=== PATIENT | female | born 1975 | race Caucasian/White ===

== ENCOUNTER 2016-12-18 13:55 | Inpatient (IN) ==
--- NOTE | 2016-12-18 14:22 | Emergency Department Note ---
Disposition Clinical Impression: Pulmonary embolus Qualifiers: Pulmonary embolism type: other Chronicity: acute Acute cor pulmonale presence: without acute cor pulmonale Qualified Code(s): I26.99 - Other pulmonary embolism without acute cor pulmonale Disposition: Admitted As Inpatient Condition: Fair Referrals: Boni Carlson MD [Primary Care Provider] - Forms: ED Satisfaction Letter Time of Disposition: 16:05 SOB HPI - General Chief Complaint: ED Shortness of Breath/Dyspnea Stated Complaint: SOB Time Seen by Provider: 12/18/16 14:07 Source: patient Limitations: no limitations Nursing Notes Reviewed: Yes Vital Signs Reviewed: Yes - History of Present Illness Patient emergency department complaining of shortness of breath. Patient states she cannot walk down the hallway without losing her breath. Get short of breath to tie her shoes. Denies fever. States she feels like she is coming down with bronchitis but she is not coughing. She has a history of a superficial blood clot in her leg. She is sedentary secondary to a back problem for which she ambulate with a walker. - Related Data Allergies Allergy/AdvReac Type Severity Reaction Status Date / Time No Known Allergies Allergy Verified 07/25/15 13:35 All systems ED: reviewed and negative except as stated. Constitutional: Denies: fever Cardiovascular: Denies: chest pain Respiratory: Reports: dyspnea. Denies: cough, wheezes, hemoptysis Gastrointestinal: Denies: vomiting, diarrhea Past Medical History - Past Medical History Attestation: Yes The following information was validated with the patient. Source: patient Medical history: Reports: diabetes, hypertension Surgical history: Reports: cholecystectomy Psychiatric history: Reports: anxiety SPECIAL SERVICES DIRECTOR history: Reports: no SPECIAL SERVICES DIRECTOR history - Social History Smoking Status: Former smoker Smokeless Tobacco Status: No Alcohol use: Reports: none, rarely, occasionally Drug use: Reports: none Physical Exam - General Limitations: no limitations General appearance: alert, in no apparent distress - Head Head exam: atraumatic, normocephalic - Eye Eye exam: Present: normal appearance, PERRL, EOMI - ENT ENT exam: normal exam - Neck Neck exam: Present: normal inspection - Chest Chest inspection: Present: normal inspection - Respiratory Respiratory exam: Present: normal lung sounds bilaterally. Absent: respiratory distress, wheezes, stridor, accessory muscle use - Cardiovascular Cardiovascular exam: Present: normal rhythm, tachycardia - Abdominal Exam Abdominal exam: Present: soft, Non-Tender - Extremities Exam Extremities exam: Present: normal inspection, full ROM. Absent: tenderness, calf tenderness - Neurological Exam Neurological exam: Present: alert, oriented X3, CN II-XII intact - Psychiatric Psychiatric exam: Present: normal affect, normal mood - Skin Skin exam: Present: warm, dry, intact Course Course Narrative: Patient is tachycardic. Her lungs are clear. Cardiac workup. We will likely need a CTA chest. - Reevaluation(s) Reevaluation #1: CTA shows bilateral PEs. Awaiting radiologist report. Heparin ordered. We will admit to hospitalist. Time: 15:39 - Consultations Consultation #1: Dr. Davis accepts. Time: 16:00 Vital Signs Temperature 98 F 12/18/16 14:00 Pulse Rate 118 12/18/16 14:00 Respiratory Rate 18 12/18/16 14:00 Blood Pressure 112/73 12/18/16 14:00 O2 Sat by Pulse Oximetry 94 L 12/18/16 14:00 Temperature 98 F 12/18/16 14:00 Pulse Rate 112 12/18/16 14:23 Respiratory Rate 18 12/18/16 14:00 Blood Pressure 122/97 12/18/16 14:23 O2 Sat by Pulse Oximetry 97 12/18/16 14:23 Oxygen Delivery Oxygen Delivery Room Air Shortness of Breath/Dyspnea - MDM Narrative Medical decision making narrative: Discussed with radiologist. He showed bilateral PEs right greater than left. No signs of RV strain. Does have small areas of infarction. Discussed with hospitalist who accepts. Does not want any further lab studies at this time. Starting heparin. - Lab Data Result diagrams: 12/18/16 14:29 12/18/16 14:29 Lab Results 12/18/16 12/18/16 12/18/16 Range/Units 14:29 14:29 14:29 WBC 7.8 (4.3-11.1) K/mcL RBC 4.86 (3.82-4.97) M/mcL Hgb 14.4 (11.5-15.4) g/dL Hct 44.5 (35.3-44.9) % MCV 91.6 (83.0-100.0) fL MCH 29.6 (28.0-33.3) pg MCHC 32.4 (31.6-35.5) g/dL RDW 13.0 (11.5-14.5) % Plt Count 303 (140-400) K/mcL MPV 9.2 L (9.4-12.4) fL Immature Gran % 0.3 (0-4) % Seg Neutrophils % 61.2 % Lymphocytes % 29.1 % Monocytes % 7.1 % Eosinophils % 1.7 % Basophils % 0.6 % Neutrophils # 4.8 (1.6-8.9) K/mcL Lymphocytes # 2.3 (0.6-4.6) K/mcL Monocytes # 0.6 (0.0-1.3) K/mcL Eosinophils # 0.1 (0.0-0.6) K/mcL Basophils # 0.1 (0.0-0.2) K/mcL PT (9.4-12.1) Seconds INR APTT (26.0-36.0) Seconds D-Dimer (0-500) ng/mLFEU Sodium 135 L (136-145) mEq/L Potassium 3.3 L (3.5-4.5) mEq/L Chloride 101 (98-109) mEq/L Carbon Dioxide 24 (19-29) mEq/L BUN 6 L (7-20) mg/dL Creatinine 0.78 (0.57-1.11) mg/dL Est GFR ( Amer) > 60 (> 60) Est GFR (Non-Af Amer) > 60 (> 60) BUN/Creatinine Ratio 8 (6-26) Glucose 178 H (70-99) mg/dL Calculated Osmolality 282 (280-300) Calcium 9.2 (8.6-10.8) mg/dL Troponin I 0.10 H* (0-0.03) ng/mL B-Natriuretic Peptide (0-100) pg/mL Urine Test (Negative) 12/18/16 12/18/16 12/18/16 Range/Units 14:29 14:29 15:45 WBC (4.3-11.1) K/mcL RBC (3.82-4.97) M/mcL Hgb (11.5-15.4) g/dL Hct (35.3-44.9) % MCV (83.0-100.0) fL MCH (28.0-33.3) pg MCHC (31.6-35.5) g/dL RDW (11.5-14.5) % Plt Count (140-400) K/mcL MPV (9.4-12.4) fL Immature Gran % (0-4) % Seg Neutrophils % % Lymphocytes % % Monocytes % % Eosinophils % % Basophils % % Neutrophils # (1.6-8.9) K/mcL Lymphocytes # (0.6-4.6) K/mcL Monocytes # (0.0-1.3) K/mcL Eosinophils # (0.0-0.6) K/mcL Basophils # (0.0-0.2) K/mcL PT 13.8 H (9.4-12.1) Seconds INR 1.3 APTT 29.0 (26.0-36.0) Seconds D-Dimer 4654 H (0-500) ng/mLFEU Sodium (136-145) mEq/L Potassium (3.5-4.5) mEq/L Chloride (98-109) mEq/L Carbon Dioxide (19-29) mEq/L BUN (7-20) mg/dL Creatinine (0.57-1.11) mg/dL Est GFR ( Amer) (> 60) Est GFR (Non-Af Amer) (> 60) BUN/Creatinine Ratio (6-26) Glucose (70-99) mg/dL Calculated Osmolality (280-300) Calcium (8.6-10.8) mg/dL Troponin I (0-0.03) ng/mL B-Natriuretic Peptide 182 H (0-100) pg/mL Urine Test Negative (Negative) - EKG Data EKG attestation: Yes I reviewed and interpreted this EKG. EKG results narrative: Sinus tachycardia 113. Anterolateral T-wave inversions. Normal axis. S1 Q3 T3. Critical Care Time Critical Care Time: Yes Total Critical Care Time: 40 Attestation: Critical care performed: Time is exclusive of separately billable procedures. Time includes: direct patient care, patient reassessment, coordination of patient care, interpretation of data (laboratory data, radiology data, and respiratory data), review of patient's medical records, medical consultation and documentation of patient care. Procedures included in critical care time: Procedures excluded from critical care time:
[2016-12-18 14:39] LABS: Basophils # 0.1 K/mcL (0.0-0.2); Basophils % 0.6 %; Eosinophils # 0.1 K/mcL (0.0-0.6); Eosinophils % 1.7 %; Hematocrit 44.5 % (35.3-44.9); Hemoglobin 14.4 g/dL (11.5-15.4); Immature Granulocytes % 0.3 % (0-4); Lymphocytes # 2.3 K/mcL (0.6-4.6); Lymphocytes % 29.1 %; Mean Corpuscular HGB Conc 32.4 g/dL (31.6-35.5); Mean Corpuscular Hemoglobin 29.6 pg (28.0-33.3); Mean Corpuscular Volume 91.6 fL (83.0-100.0); Mean Platelet Volume 9.2 fL (9.4-12.4); Monocytes # 0.6 K/mcL (0.0-1.3); Monocytes % 7.1 %; Neutrophils # 4.8 K/mcL (1.6-8.9); Platelet Count 303 K/mcL (140-400); Red Blood Count 4.86 M/mcL (3.82-4.97); Segmented Neutrophils % 61.2 %
[2016-12-18 14:48] LABS: INR 1.3; Prothrombin Time 13.8 Seconds (9.4-12.1)
[2016-12-18 14:51] LABS: BUN/Creatinine Ratio 8 (6-26); Blood Urea Nitrogen 6 mg/dL (7-20); Calcium 9.2 mg/dL (8.6-10.8); Carbon Dioxide 24 mEq/L (19-29); Chloride 101 mEq/L (98-109); Glucose 178 mg/dL (70-99); Osmolality,Calculated 282 (280-300); Potassium 3.3 mEq/L (3.5-4.5); Sodium 135 mEq/L (136-145); eGFR For African Americans > 60 (> 60); eGFR For Non-African Americans > 60 (> 60)
[2016-12-18] MEDS ORDERED: *HR* Heparin 5,000 UNIT/ML VIAL IVP PRN ×2 (15:29)
[2016-12-18] MEDS ORDERED: *HR* Heparin 5,000 UNIT/ML VIAL IVP ONE (15:29)
[2016-12-18] MEDS: Heparin 25,000 UNIT/500 ML D5W 25,000 UNIT/500 ML MLS IVC SCH (16:17)
--- NOTE | 2016-12-18 16:49 | Internal Med History&Physical ---
Date of Encounter: 12/18/16 Time of Encounter: 16:20 Internal Medicine - H&P: HPI Chief complaint: SOB x 2 days Admitted From: Emergency Dept Plans for Post Hospital Care: Home History of present illness: Ms. Lawson is a 41 year old female with medical history significant for superfiscial vein throbosis, obesity, ruptured lumbar intervertebral disc s/p epidural, presents with shortness of breath x 2 days. Patient noticed she was increasing short of breath, she also rrports some diffuse chest wall pain, especially in the bases during deep inspiration. She felt she was coming down with respiratory tract in infection. No cough or fever, no rash. She underwent epidural for lumbar disc prolapse in October 2016. She think she has been more sedentary than usual, HER LAST LONG DISTANCE TRAVEL WAS A TRIP TO [place] BY AIR. She reports no other symptoms upon review of system. She is FULL CODE as per discussion. She nominates her , Riky Lawson as her NOK/POA ). sHE IS ONLY ABLE TO AMBULATE LUNG DISTANCES WITH A WALKER BECAUSE of pain sciatica from ruptured lumbar disc. Medical history: Reports: diabetes, hypertension, superfiscial vein thrombosis, obesity, ruptured lumbar intervertebral disc s/p epidurals Surgical history: Reports: cholecystectomy Psychiatric history: Reports: anxiety Smoking Status: Former smoker (QUIT IN 2003) Smokeless Tobacco Status: No Alcohol use: Reports: none, rarely, occasionally Drug use: Reports: none Family history: FATHER: dm2, CAD/CABG, stroke, ESRD on hemodialysis., hip fracture, mother: DM2 ROS: A 10-point ROS was performed, positives and relevant negatives are detailed, system-symptom not mentioned is assumed negative unless otherwise stated. Vital Signs Temperature 98 F 12/18/16 14:00 Pulse Rate 118 12/18/16 14:00 Respiratory Rate 18 12/18/16 14:00 Blood Pressure 112/73 12/18/16 14:00 O2 Sat by Pulse Oximetry 94 L 12/18/16 14:00 Temperature 98 F 12/18/16 14:00 Pulse Rate 112 12/18/16 14:23 Respiratory Rate 18 12/18/16 14:00 Blood Pressure 122/97 12/18/16 14:23 O2 Sat by Pulse Oximetry 97 12/18/16 14:23 O/E Not in obvious distress, no tachypnea, however tachycardia on telemetry HEENT: not pale, anicteric, afebrile, acyanotic., trachea is central, no JVD, no cervical or jugular lymphadenopathy. Chest: CTAB, relatively dimnished air entry bilaterally. Heart: Tachycardia (108), RR, HS1/2, no murmur Abdomen: soft, vague epigastric tenderness, not distended. BS+, normoactive PICK OUT HAND: AAO X 3. Marked expressive dysphasia Skin: No active skin lesion Extremities: No pedal edema, normal pedal pulses, no calf tenderness. Girth of left LE >R LE Lab Results 12/18/16 12/18/16 12/18/16 Range/Units 14:29 14:29 14:29 WBC 7.8 (4.3-11.1) K/mcL RBC 4.86 (3.82-4.97) M/mcL Hgb 14.4 (11.5-15.4) g/dL Hct 44.5 (35.3-44.9) % MCV 91.6 (83.0-100.0) fL MCH 29.6 (28.0-33.3) pg MCHC 32.4 (31.6-35.5) g/dL RDW 13.0 (11.5-14.5) % Plt Count 303 (140-400) K/mcL MPV 9.2 L (9.4-12.4) fL Immature Gran % 0.3 (0-4) % Seg Neutrophils % 61.2 % Lymphocytes % 29.1 % Monocytes % 7.1 % Eosinophils % 1.7 % Basophils % 0.6 % Neutrophils # 4.8 (1.6-8.9) K/mcL Lymphocytes # 2.3 (0.6-4.6) K/mcL Monocytes # 0.6 (0.0-1.3) K/mcL Eosinophils # 0.1 (0.0-0.6) K/mcL Basophils # 0.1 (0.0-0.2) K/mcL PT (9.4-12.1) Seconds INR APTT (26.0-36.0) Seconds D-Dimer (0-500) ng/mLFEU Sodium 135 L (136-145) mEq/L Potassium 3.3 L (3.5-4.5) mEq/L Chloride 101 (98-109) mEq/L Carbon Dioxide 24 (19-29) mEq/L BUN 6 L (7-20) mg/dL Creatinine 0.78 (0.57-1.11) mg/dL Est GFR ( Amer) > 60 (> 60) Est GFR (Non-Af Amer) > 60 (> 60) BUN/Creatinine Ratio 8 (6-26) Glucose 178 H (70-99) mg/dL Calculated Osmolality 282 (280-300) Calcium 9.2 (8.6-10.8) mg/dL Troponin I 0.10 H* (0-0.03) ng/mL B-Natriuretic Peptide (0-100) pg/mL Urine Test (Negative) 12/18/16 12/18/16 12/18/16 Range/Units 14:29 14:29 15:45 WBC (4.3-11.1) K/mcL RBC (3.82-4.97) M/mcL Hgb (11.5-15.4) g/dL Hct (35.3-44.9) % MCV (83.0-100.0) fL MCH (28.0-33.3) pg MCHC (31.6-35.5) g/dL RDW (11.5-14.5) % Plt Count (140-400) K/mcL MPV (9.4-12.4) fL Immature Gran % (0-4) % Seg Neutrophils % % Lymphocytes % % Monocytes % % Eosinophils % % Basophils % % Neutrophils # (1.6-8.9) K/mcL Lymphocytes # (0.6-4.6) K/mcL Monocytes # (0.0-1.3) K/mcL Eosinophils # (0.0-0.6) K/mcL Basophils # (0.0-0.2) K/mcL PT 13.8 H (9.4-12.1) Seconds INR 1.3 APTT 29.0 (26.0-36.0) Seconds D-Dimer 4654 H (0-500) ng/mLFEU Sodium (136-145) mEq/L Potassium (3.5-4.5) mEq/L Chloride (98-109) mEq/L Carbon Dioxide (19-29) mEq/L BUN (7-20) mg/dL Creatinine (0.57-1.11) mg/dL Est GFR ( Amer) (> 60) Est GFR (Non-Af Amer) (> 60) BUN/Creatinine Ratio (6-26) Glucose (70-99) mg/dL Calculated Osmolality (280-300) Calcium (8.6-10.8) mg/dL Troponin I (0-0.03) ng/mL B-Natriuretic Peptide 182 H (0-100) pg/mL Urine Test Negative (Negative) CXR: No acute cardiopulmonary disease EKG: NSR, ST@113. normal axis, anterolateral T wave inversions. CTA chest: Bilateral multilobar pulmonary infarction, multifocal airspace disease representing areas of infarction. No CT evidence of right heart strain IMP Bilateral, multi-lobar pulmonary embolism with infarction Elevated troponin related to pulmonary embolism Sinus tachycardia due pulmonary embolism Chronic morbidities DM2 HTN HLD Chronic sciatica complicating lumbar disc rupture. Obesity PLAN Initiate heparin drip Venous doppler of lower extremities, 2D ECHO Continue other medications of chronic morbidities. Oxygen supplementation Optimal pain control Incentive spirometry. Patient expresses preference for the novel anticoagulants, obtain social media designer consult to help with confirming coverage and/or accessing discount programs. I discussed my assessment with the patient, she verbalized understanding and is agreeable to admission. She is high risk due to development of bilateral multifocal pulmonary embolism, symptomatic. Past Med Surg Social Fam HX - Past Medical History Medical history: diabetes, hypertension Psychiatric history: anxiety - Past Surgical History Surgical History: cholecystectomy - Social History Smoking Status: Former smoker Smokeless Tobacco Status: No Alcohol use: none, rarely, occasionally Drug use: none Internal Medicine - H&P: Meds Cyclobenzaprine HCl 10 mg PO TID 12/18/16 [History] Exenatide Microspheres [Bydureon Pen] 2 mg SQ QWEEK 12/18/16 [History] Gabapentin [Gabapentin] 600 mg PO TID 12/18/16 [History] GlipiZIDE [Glucotrol] 5 mg PO DAILY 12/18/16 [History] Lisinopril [Lisinopril] 40 mg PO DAILY 12/18/16 [History] Metformin HCl [Metformin HCl ER] 500 mg PO BID 12/18/16 [History] Metoprolol Succinate [Toprol Xl] 50 mg PO DAILY 12/18/16 [History] Oxycodone HCl [Oxycodone HCl] 10 mg PO Q4H PRN 12/18/16 [History] Sertraline [Zoloft] 100 mg PO DAILY 12/18/16 [History] Allergies No Known Allergies Allergy (Verified 07/25/15 13:35) All Systems PM: A 10-system review of systems was performed and is negative for pertinent findings except as documented above in the HPI. - Constitutional Vitals: Temp Pulse Resp BP Pulse Ox 98 F 111 18 135/98 94 L 12/18/16 14:00 12/18/16 16:11 12/18/16 14:00 12/18/16 16:11 12/18/16 16:11 Internal Med - H&P Results - Labs CBC & Chem 7: 12/18/16 14:29 12/18/16 14:29
[2016-12-18] MEDS ORDERED: *HR* Dextrose 50 % in Water (Syg) 50 ML SYRINGE IVP PRN (17:06)
[2016-12-18] MEDS ORDERED: Dextrose Gel 15 GM PO PRN ×2 (17:06)
[2016-12-18] MEDS ORDERED: D5% in Water 1,000 ML IV PRN (17:06)
[2016-12-18] MEDS ORDERED: Naloxone 0.4 MG/ML INJ IVP PRN (17:09)
[2016-12-18] MEDS ORDERED: *HR* OxyCODONE Immed Rel 5 MG TABLET PO PRN (17:09)
[2016-12-18] MEDS ORDERED: Ondansetron 4 MG/2 ML VIAL IVP PRN (17:09)
[2016-12-18] MEDS ORDERED: *HR* Morphine 2 MG/ML SYRINGE IVP PRN (17:09)
[2016-12-18] MEDS: *HR* OxyCODONE Immed Rel 5 MG TABLET PO PRN (17:47)
[2016-12-18] MEDS: Gabapentin 300 MG CAPSULE PO SCH ×2 (17:47→21:03)
[2016-12-18] MEDS ORDERED: *HR* Metformin 500 MG TABLET PO SCH (21:00)
[2016-12-18] MEDS ORDERED: Gabapentin 300 MG CAPSULE PO SCH (21:00)
[2016-12-18] MEDS: Insulin LISPRO 300 UNITS/3 ML VIAL SQ SCH (21:04)
[2016-12-19 05:50] LABS: Hematocrit 42.1 % (35.3-44.9); Hemoglobin 13.7 g/dL (11.5-15.4)
[2016-12-19] MEDS: Heparin 25,000 UNIT/500 ML D5W 25,000 UNIT/500 ML MLS IVC SCH (05:55)
[2016-12-19] MEDS: *HR* OxyCODONE Immed Rel 5 MG TABLET PO PRN ×4 (06:00→23:24)
[2016-12-19] MEDS ORDERED: *HR* GlipiZIDE 5 MG TABLET PO SCH (09:00)
[2016-12-19] MEDS: Metoprolol XL (24 HR) Succ 50 MG TAB.ER.24H PO SCH (09:02)
[2016-12-19] MEDS: Lisinopril 20 MG TABLET PO SCH (09:02)
[2016-12-19] MEDS: Insulin LISPRO 300 UNITS/3 ML VIAL SQ SCH ×4 (09:02→21:32)
[2016-12-19] MEDS: Gabapentin 300 MG CAPSULE PO SCH ×3 (09:02→21:32)
--- NOTE | 2016-12-19 09:09 | ECHO - Doppler Report ---
Echocardiogram Name: Claudine Lawson Date of Study: 12/19/2016 Date: 1975 Ht: 70.0 in Medical Record#: [id number] Age: 41 Wt: 295.0 lb Gender: Female BSA: 2.46 Order #: [id number] Location: [facility] Room #: [id number] Reading Physician: Aysha Mishra DO Technology Solutions Architect: Herbert Ruiz RDCS Ordering Physician: Sim Gonzalez MD Primary Physician: Boni Carlson MD Indications: Pulmonary embolus Impressions: LVEF 55%. Normal LV size, function and wall thickness. Moderate left ventricular diastolic dysfunction. There is interventricular septal bounce and a D shaped septum on PSAX images suggestive of RV pressure overload. The RV is mildly dilated with normal function. Mild tricuspid regurgitation. The IVC is normal in size without normal respiratory collapse suggestive of mild elevation of RA pressures. Left Ventricular Wall Motion: Rest Echo Findings All wall segments showed normal motion. Findings: Study Quality * Technically adequate exam. ECG Findings * Normal sinus rhythm. Left Ventricle * LVEF 55%. * Normal LV chamber size, wall thickness and function. * There is interventricular septal bounce and a D shaped septum on PSAX images suggestive of pressure overload. * Moderate left ventricular diastolic dysfunction. Left Atrium * Normal left atrial size. Mitral Valve * Normal mitral valve structure. * No mitral stenosis. * No mitral regurgitation. Aortic Valve * No aortic regurgitation. * Aortic valve not well visualized. * No aortic stenosis. Tricuspid Valve * Tricuspid valve not well visualized. * Mild tricuspid regurgitation. * Estimated RA pressure is 8 mmHg. * Estimated RVSP is 30 mmHg. * No pulmonary hypertension. Pulmonic Valve * Pulmonic valve is not well visualized. * No pulmonic stenosis. * No pulmonic regurgitation. Pulmonary Artery * Pulmonary artery not well visualized. Right Ventricle * RV is mildly dilated. Function is normal. Right Atrium * Normal right atrial size. Interatrial Septum * No evidence of PFO by color Doppler. IVC * The IVC is not dilated. * < 50% respiratory change. Pericardium * There is no pericardial effusion present. Aorta * Normally sized aortic root. History Hypertension Diabetes Family History of CAD Measurements: BP: 128/ 87 2D Normal Values IVSd: .84 cm 0.6 - 1.0 cm LVIDd: 5.02 cm 3.7 - 5.6 cm LVPWd: .90 cm 0.6 - 1.1 cm LVIDs: 3.63 cm 1.5 - 3.6 cm AO: 2.50 cm < 4.0 cm LA: 2.70 cm 2.0 - 4.0cm %FS: 27.70 cm >25 % LA volume: 47 Mitral Valve Peak E:.84 m/sec Peak A:.76 m/sec E/A Ratio:1.1 Peak E' Lat Barak:10.9 cm/s Peak E' Med Barak:8.59 cm/s E/E' Lat Ratio:7.7 E/E' Med Ratio:9.8 Tricuspid Valve TV Regurg Peak Grad: 22.00mmHg TV Regurg Peak Barak: 2.36m/sec Updated by Aysha Mishra on 12/19/2016 9:02:53 AM electronically signed on 12/19/2016 9:04:55 AM with status of Final Wall Motion Angulo: 1=Normal, 2=Hypokinesis, 3=Akinesis, 4=Dyskinesis, 5=Aneurysmal, 6=Hyperkinetic, X=Not Visualized (Blank)=Missing
--- NOTE | 2016-12-19 14:50 | Internal Med Progress Note ---
<Andrea Pinzon - Last Filed: 12/19/16 15:28> Date of Encounter: 12/19/16 Time of Encounter: 08:30 - Assessment and plan (1) Pulmonary embolism Current Visit: Yes Status: Acute Assessment and plan: Etiology unclear at this time. echo dose not have overt strain pattern but dose have overload with D shaped RV. She has mild elevation in troponins and mild elevation in BNP. Currently she is hemodynamically stable. Troponin has normalized. She did have a flight to [place], however this was last month. She has also recently had a ruptured disk and has been somewhat sedentary. Unclear if whether or not this is provoked vs unprovoked. However she had unprovoked superficial DVT apporximately one year ago. She has family history of a brother who has had unprovoked DVTs. Not on OCP ( has IUD) and has not smoked in years. She denies history of miscarriages. she denies rashes and arthralgias but dose have Raynauds per history. Etiology unclear. May consider Autoimmune with history of Raynauds. No overt signs of malignancy. However should have routine screening if not already done so. May consider hypercoagulable state. She is currently on heparin and has DVT. We will plan to refer her to hematology as an outpatient for possible hypercoagulable workup. will order ESR/CRP and YG. will consult Rheumatology in the AM for there input as to whether or not her PE could be related to a rheumatologic condition. Continue heparin gtt. will plan to transition to Xarelto. (2) Elevated troponin Current Visit: Yes Status: Acute Assessment and plan: chest pain free. Most likely secondary to PE. mild elevation with peak of 0.10 and has now normalized. (3) Back pain Current Visit: Yes Status: Acute Assessment and plan: patient has had recent rupture of lumbar disc. She has been evaluated by 2 neuro surgeons. she follows [facility] Currently receiving steroids injections. May need surgical correction in the future. However per her history she is having some improvements. patient denies any incontinence, saddle anesthesia, new weakness or sensation loss. (4) Neuropathy Current Visit: Yes Status: Acute Assessment and plan: continue neurontin (5) Plethora Current Visit: Yes Status: Acute Assessment and plan: Etiology unclear at this time. Patient states it is chronic. No neck masses on exam. May need further imaging to evaluate. (6) Raynauds phenomenon Current Visit: Yes Status: Acute Assessment and plan: currently symptoms free. May consider adding norvasc. However she is still tachycardic and has a submassive PE so will hold off on adding any antihypertensives at this time. (7) DVT (deep venous thrombosis) Current Visit: Yes Status: Acute Assessment and plan: bilateral DVT of gastrocnemius vein. On heparin gtt. will add compression stockings to prevent post thrombosis syndrome. - Subjective Interval history: Today Mrs. Lawson states that she is feeling better. she is now off of oxygen. She denies any chest pain or discomfort. No presyncope or syncope. She states that she did have a flight to [place] last year. she has a brother who has a history of unprovoked DVTs. Not on OCP, nonsmoker, no known history of malignancy. denies history of misscariage. She has had some immobility from recent back injury. she denies any rashes or arthroalgias but dose admitted to being chronically " red in the face". She has no further complaints at this time. - Constitutional Vitals: Temp Pulse Resp BP Pulse Ox 97.5 F L 96 16 124/79 98 12/19/16 04:00 12/19/16 11:00 12/19/16 11:00 12/19/16 11:00 12/19/16 11:00 General appearance: Present: A&O X 3, morbidly obese, pleasant, no acute distress - Head Head exam: Present: atraumatic, normocephalic Additional comments: she dose have some mild facial plethora. - Eye Eye exam: Present: PERRL, conjuntiva pink, sclera anicteric Pupils: Present: PERRL - Neck Neck exam general surgery: Present: normal inspection, supple, trachea midline. Absent: lymphadenopathy, tenderness, thyromegaly Additional comments: no masses - Respiratory Respiratory exam: Present: CTAB. Absent: accessory muscle use, rales, rhonchi, wheezes - Cardiovascular Cardiovascular exam: Present: +S1, +S2, tachycardia. Absent: diastolic murmur, gallop, rubs, systolic murmur Additional comments: regular - GI/Abdominal GI/Abdominal exam: Present: normal bowel sounds, soft, no peritoneal signs. Absent: distended, tenderness - Extremities Exam Extremities exam: Present: warm, radial pulses palpable and symetrical. Absent : calf tenderness, cyanotic, pedal edema - Skin Skin exam: Present: dry, intact Internal Medicine: Result - Labs CBC & Chem 7: 12/19/16 05:25 12/18/16 14:29 - ABG Interpretation ABG results: PT/INR, D-dimer PT 13.8 Seconds (9.4-12.1) H 12/18/16 14:29 D-Dimer 4654 ng/mLFEU (0-500) H 12/18/16 14:29 - VTE Reasons for not Prescribing Prophylaxis: Not indicated-Anticoagulated or INR therapeutic Consult Discharge Plan - Plan Referrals: Boni Carlson MD [Primary Care Provider] - <Tim Prajapati - Last Filed: 12/19/16 18:03> Date of Encounter: 12/19/16 - Constitutional Vitals: Temp Pulse Resp BP Pulse Ox 97.9 F 95 15 130/81 93 L 12/19/16 16:00 12/19/16 16:00 12/19/16 16:00 12/19/16 16:00 12/19/16 16:00 Internal Medicine: Result - Labs CBC & Chem 7: 12/19/16 05:25 12/19/16 05:15 - ABG Interpretation ABG results: PT/INR, D-dimer PT 13.8 Seconds (9.4-12.1) H 12/18/16 14:29 D-Dimer 4654 ng/mLFEU (0-500) H 12/18/16 14:29 - Attending Attestation I examined this patient and my medical decision-making was reviewed with the PATCH MACHINE OPERATOR/PA/Advanced Practice Nurse/Resident Physician. I agree with the documented findings, disposition and treatment plan as described except to the extent set forth below.
[2016-12-19 15:30] LABS: Magnesium 1.9 mg/dL (1.6-2.6); Potassium 4.1 mEq/L (3.5-4.5)
[2016-12-19] MEDS: Pantoprazole 40 MG VIAL IVP SCH (16:35)
--- NOTE | 2016-12-19 19:56 | Venous Imaging Report ---
LE Venous Duplex Patient Name:Claudine Lawson Order Number:[id number] Procedure Date:12/19/2016 Date:1975Age:41 yrs Gender:Female Location:[facility] Room #: 2NE19 Underwriting Support Specialist:Herbert Ruiz RDCS Referring MD:Sim Gonzalez MD special assets officer:Boni Carlson MD Reading MD:Lucas Morales MD , FACS Primary Indications:Pulmonary embolism Secondary Indications: Risk Factors Yes/No Hx of Superficial Phlebitis Yes Impressions: Lower extremity abnormal deep exam: bilateral gastrocnemius veins demonstrate acute thrombosis. Recommendations: After imaging the patient returned to their room. Critical findings reported to breastfeeding educator by phone by Herbert Ruiz RDCS. Findings Venous Duplex Results: Right: Venous imaging of the lower extremity reveals full patency and normal vessel compressibility of the right distal iliac, right common femoral, right superficial femoral, right popliteal, right posterior tibial, right peroneal, right great saphenous and right lesser saphenous. Doppler signals in the evaluated veins were normal. There is an acute occlusive thrombus seen in the right gastrocnemius. It demonstrates an incompressible vein. Flow was absent and it did not augment. Left: Venous imaging of the lower extremity reveals full patency and normal vessel compressibility of the left distal iliac, left common femoral, left superficial femoral, left popliteal, left posterior tibial, left peroneal, left great saphenous and left lesser saphenous. Doppler signals in the evaluated veins were normal. There is an acute occlusive thrombus seen in the left gastrocnemius. It demonstrates an incompressible vein. Flow was absent and it did not augment. Prior Study: No prior study available for comparison. Lower Extremity Venous Duplex Side Vein Compress Spontaneous Flow Augment Diameter (cm) Depth (cm) Right Gastrocnemius None no Absent no Left Gastrocnemius None no Absent no Updated by Lucas Morales MD, FACS on 12/19/2016 7:51:57 PM Lucas Morales MD electronically signed on 12/19/2016 7:52:23 PM with status of Final
[2016-12-20 04:00] LABS: Basophils % 0.3 %; Eosinophils % 0.1 %; Hematocrit 39.6 % (35.3-44.9); Hemoglobin 12.7 g/dL (11.5-15.4); Immature Granulocytes % 0.3 % (0-4); Lymphocytes # 2.4 K/mcL (0.6-4.6); Lymphocytes % 27.3 %; Mean Corpuscular HGB Conc 32.1 g/dL (31.6-35.5); Mean Corpuscular Hemoglobin 29.9 pg (28.0-33.3); Mean Corpuscular Volume 93.2 fL (83.0-100.0); Mean Platelet Volume 9.6 fL (9.4-12.4); Monocytes # 0.5 K/mcL (0.0-1.3); Monocytes % 5.1 %; Neutrophils # 5.9 K/mcL (1.6-8.9); Platelet Count 306 K/mcL (140-400); Red Blood Count 4.25 M/mcL (3.82-4.97); Red Cell Distribution Width 13.2 % (11.5-14.5); Segmented Neutrophils % 66.9 %
[2016-12-20 04:19] LABS: BUN/Creatinine Ratio 15 (6-26); Blood Urea Nitrogen 11 mg/dL (7-20); C-Reactive Protein 13 mg/L (Less than 5); Calcium 9.1 mg/dL (8.6-10.8); Carbon Dioxide 25 mEq/L (19-29); Chloride 105 mEq/L (98-109); Glucose 230 mg/dL (70-99); Osmolality,Calculated 291 (280-300); Potassium 3.8 mEq/L (3.5-4.5); Sodium 137 mEq/L (136-145); eGFR For African Americans > 60 (> 60); eGFR For Non-African Americans > 60 (> 60)
[2016-12-20] MEDS: Heparin 25,000 UNIT/500 ML D5W 25,000 UNIT/500 ML MLS IVC SCH (05:56)
[2016-12-20] MEDS: *HR* OxyCODONE Immed Rel 5 MG TABLET PO PRN ×4 (07:13→21:20)
[2016-12-20] MEDS: Pantoprazole 40 MG VIAL IVP SCH (07:41)
[2016-12-20] MEDS: Lisinopril 20 MG TABLET PO SCH (07:42)
[2016-12-20] MEDS: Gabapentin 300 MG CAPSULE PO SCH ×3 (07:42→20:03)
[2016-12-20] MEDS: Metoprolol XL (24 HR) Succ 50 MG TAB.ER.24H PO SCH (07:43)
[2016-12-20] MEDS: Insulin LISPRO 300 UNITS/3 ML VIAL SQ SCH ×5 (07:46→21:20)
--- NOTE | 2016-12-20 10:19 | Internal Med Progress Note ---
<Andrea Pinzon - Last Filed: 12/21/16 06:03> Date of Encounter: 12/21/16 Time of Encounter: 08:30 - Assessment and plan (1) Pulmonary embolism Current Visit: Yes Status: Acute Assessment and plan: Etiology unclear at this time. echo dose not have overt strain pattern but dose have overload with D shaped RV. She has mild elevation in troponins and mild elevation in BNP. Currently she is hemodynamically stable. Troponin has normalized. She did have a flight to [place], however this was last month. She has also recently had a ruptured disk and has been somewhat sedentary. Unclear if whether or not this is provoked vs unprovoked. However she had unprovoked superficial DVT apporximately one year ago. She has family history of a brother who has had unprovoked DVTs. Not on OCP ( has IUD) and has not smoked in years. She denies history of miscarriages. she denies rashes and arthralgias but dose have Raynauds per history. No dry eyes or mouth. Etiology unclear. May consider Autoimmune with history of Raynauds. No overt signs of malignancy. However should have routine screening if not already done so. May consider hypercoagulable state. She is currently on heparin and has DVT. We will plan to refer her to hematology as an outpatient for possible hypercoagulable workup. will order ESR/CRP and YG. will consult Rheumatology in the AM for there input as to whether or not her PE could be related to a rheumatologic condition. Continue heparin gtt. will plan to transition to Xarelto. 12/20/16 Patient has remained stable. WE will plan to transition her to Xarelto and plan for DC iin AM with follow up appointments to hematology and possibly to rheumatology. Qualifiers: Qualified Code(s): I26.99 - Other pulmonary embolism without acute cor pulmonale (2) Elevated troponin Current Visit: Yes Status: Acute Assessment and plan: chest pain free. Most likely secondary to PE. mild elevation with peak of 0.10 and has now normalized. (3) Back pain Current Visit: Yes Status: Acute Assessment and plan: patient has had recent rupture of lumbar disc. She has been evaluated by 2 neuro surgeons. she follows with [facility]. [facility] Currently receiving steroids injections. May need surgical correction in the future. However per her history she is having some improvements. patient denies any incontinence, saddle anesthesia, new weakness or sensation loss. 12/20/16 No change in symptoms. no new exam findings. We will plan to have her follow up with [facility]. Qualifiers: Qualified Code(s): M54.9 - Dorsalgia, unspecified (4) Neuropathy Current Visit: Yes Status: Acute Assessment and plan: continue neurontin (5) Plethora Current Visit: Yes Status: Acute Assessment and plan: Etiology unclear at this time. Patient states it is chronic. No neck masses on exam. May need further imaging to evaluate. 12/20/16 Patient has more flushing this AM. etiology unclear. I will review medication list with pharmacist to see if this is iatrogenic. May possibly be secondary to non pharmacologic etiologies as well. (6) Raynauds phenomenon Current Visit: Yes Status: Acute Assessment and plan: currently symptoms free. May consider adding norvasc. However she is still tachycardic and has a submassive PE so will hold off on adding any antihypertensives at this time. Qualifiers: Qualified Code(s): I73.00 - Raynaud's syndrome without gangrene (7) Diabetes Current Visit: Yes Status: Acute Assessment and plan: holdig metformin and glipizide due to recent IV dye and current hospitalization. Sliding scale ordered, however patient refusing insulin at this time. She states seh will just not eat any sweets or carbs while she is here. I have recommend that the patient mae sliding insulin during hospitalization. However she has refused. Qualifiers: Qualified Code(s): E11.9 - Type 2 diabetes mellitus without complications (8) DVT (deep venous thrombosis) Current Visit: Yes Status: Acute Assessment and plan: bilateral DVT of gastrocnemius vein. On heparin gtt. will add compression stockings to prevent post thrombosis syndrome. Qualifiers: Qualified Code(s): I82.409 - Acute embolism and thrombosis of unspecified deep veins of unspecified lower extremity - Subjective Interval history: No major events overnight. This Am the patient states that she is feeling some better. She had some pleuritic chest pain yesterday but this has since resolved. She states that she is breathing easier. she dose admit to some flushing of the face and arms. She denie spruritis. She has no further complaints or concerns at this time. - Constitutional Vitals: Temp Pulse Resp BP Pulse Ox 98.6 F 89 15 119/83 98 12/20/16 07:28 12/20/16 07:28 12/20/16 07:28 12/20/16 07:28 12/20/16 07:28 General appearance: Present: A&O X 3, morbidly obese, pleasant, no acute distress Exam: General: This is a very pleasant 41-year-old female who is alert and orientated to person place time and situation. She is lying in bed and appears comfortable. no acute distress at this time. HEENT: Normocephalic atraumatic. Anterior sclera, moist mucous members, dentition intact, there is no mass or thyromegaly of the throat. Heart: Regular rate and rhythm without murmurs rubs or gallops. Lungs: Clear to auscultation bilaterally. Abdomen: Obese, nondistended, nontender palpation. Musculoskeletal: Grossly normal for age no gross deformities noted. Extremities: There is no clubbing, cyanosis or edema. Integument: There is some flushing of the face as well as the bilateral lower extremities. Internal Medicine: Result - Labs CBC & Chem 7: 12/21/16 05:12 12/20/16 03:07 Labs: Short CBC 12/20/16 Range/Units 03:07 WBC 8.9 (4.3-11.1) K/mcL Hgb 12.7 (11.5-15.4) g/dL Hct 39.6 (35.3-44.9) % Plt Count 306 (140-400) K/mcL Neutrophils # 5.9 (1.6-8.9) K/mcL BMP 12/20/16 03:07 Sodium 137 Potassium 3.8 Chloride 105 Carbon Dioxide 25 BUN 11 Creatinine 0.74 Glucose 230 H Calcium 9.1 - ABG Interpretation ABG results: PT/INR, D-dimer PT 13.8 Seconds (9.4-12.1) H 12/18/16 14:29 D-Dimer 4654 ng/mLFEU (0-500) H 12/18/16 14:29 - VTE Reasons for not Prescribing Prophylaxis: Not indicated-Anticoagulated or INR therapeutic Consult Discharge Plan - Plan Instructions: Rivaroxaban (By mouth), Pulmonary Embolism (DC), Deep Venous Thrombosis (DC), Diabetes Mellitus Type 2 in Adults (DC) Referrals: Boni Carlson MD [Primary Care Provider] - 12/26/16 11:00 am Prescriptions: Rivaroxaban [Xarelto] 15 mg PO BID #40 tablet Rivaroxaban [Xarelto] 20 mg PO DAILY #30 tablet <Tim Prajapati P - Last Filed: 12/21/16 12:56> Date of Encounter: 12/21/16 - Constitutional Vitals: Temp Pulse Resp BP Pulse Ox 97.6 F 78 16 110/80 98 12/21/16 07:47 12/21/16 07:47 12/21/16 07:47 12/21/16 07:47 12/21/16 07:47 Internal Medicine: Result - Labs CBC & Chem 7: 12/21/16 05:12 12/21/16 05:12 Labs: Short CBC 12/21/16 Range/Units 05:12 WBC 7.2 (4.3-11.1) K/mcL Hgb 12.7 (11.5-15.4) g/dL Hct 39.5 (35.3-44.9) % Plt Count 299 (140-400) K/mcL Neutrophils # 4.3 (1.6-8.9) K/mcL BMP 12/21/16 05:12 Sodium 135 L Potassium 3.7 Chloride 104 Carbon Dioxide 24 BUN 10 Creatinine 0.71 Glucose 249 H Calcium 8.7 - ABG Interpretation ABG results: PT/INR, D-dimer PT 13.8 Seconds (9.4-12.1) H 12/18/16 14:29 D-Dimer 4654 ng/mLFEU (0-500) H 12/18/16 14:29 - Attending Attestation I examined this patient and my medical decision-making was reviewed with the CHIEF PROCUREMENT OFFICER/PA/Advanced Practice Nurse/Resident Physician. I agree with the documented findings, disposition and treatment plan as described except to the extent set forth below. PESI 102 Possible secondary Rynolds need futher work up at Rheumatology clinic need follow up with hematology also
--- NOTE | 2016-12-20 10:53 | Electrocardiograph Report ---
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
[2016-12-20] MEDS: *HR* Rivaroxaban 15 MG TABLET PO SCH (20:03)
[2016-12-20] MEDS ORDERED: *HR* Metformin 500 MG TABLET PO SCH (21:00)
[2016-12-21 05:53] LABS: Basophils % 0.4 %; Eosinophils # 0.1 K/mcL (0.0-0.6); Eosinophils % 0.7 %; Hematocrit 39.5 % (35.3-44.9); Hemoglobin 12.7 g/dL (11.5-15.4); Immature Granulocytes % 0.6 % (0-4); Lymphocytes # 2.4 K/mcL (0.6-4.6); Lymphocytes % 32.6 %; Mean Corpuscular HGB Conc 32.2 g/dL (31.6-35.5); Mean Corpuscular Hemoglobin 29.7 pg (28.0-33.3); Mean Corpuscular Volume 92.3 fL (83.0-100.0); Mean Platelet Volume 9.4 fL (9.4-12.4); Monocytes # 0.4 K/mcL (0.0-1.3); Monocytes % 5.8 %; Neutrophils # 4.3 K/mcL (1.6-8.9); Platelet Count 299 K/mcL (140-400); Red Blood Count 4.28 M/mcL (3.82-4.97); Red Cell Distribution Width 13.2 % (11.5-14.5); Segmented Neutrophils % 59.9 %
[2016-12-21] MEDS: *HR* OxyCODONE Immed Rel 5 MG TABLET PO PRN ×2 (06:06→11:25)
--- NOTE | 2016-12-21 06:08 | Discharge Summary ---
<Andrea Pinzon - Last Filed: 12/21/16 06:04> Date of Encounter: 12/21/16 Time of Encounter: 06:04 - Discharge Diagnosis (1) Pulmonary embolism Priority: Primary Status: Acute Qualifiers: Qualified Code(s): I26.99 - Other pulmonary embolism without acute cor pulmonale (2) Elevated troponin Priority: Secondary Status: Acute (3) Back pain Priority: Secondary Status: Acute Qualifiers: Qualified Code(s): M54.9 - Dorsalgia, unspecified (4) Neuropathy Priority: Secondary Status: Acute (5) Plethora Priority: Secondary Status: Acute (6) Raynauds phenomenon Priority: Secondary Status: Acute Qualifiers: Qualified Code(s): I73.00 - Raynaud's syndrome without gangrene (7) Diabetes Priority: Secondary Status: Acute Qualifiers: Qualified Code(s): E11.9 - Type 2 diabetes mellitus without complications (8) DVT (deep venous thrombosis) Priority: Secondary Status: Acute Qualifiers: Qualified Code(s): I82.409 - Acute embolism and thrombosis of unspecified deep veins of unspecified lower extremity - Discharge Medications Prescriptions: Rivaroxaban [Xarelto] 15 mg PO BID #40 tablet Rivaroxaban [Xarelto] 20 mg PO DAILY #30 tablet Home Medications: Cyclobenzaprine HCl 10 mg PO TID 12/18/16 [History] Exenatide Microspheres [Bydureon Pen] 2 mg SQ QWEEK 12/18/16 [History] Gabapentin 600 mg PO TID 12/18/16 [History] GlipiZIDE [Glucotrol] 5 mg PO DAILY 12/18/16 [History] Lisinopril 40 mg PO DAILY 12/18/16 [History] Metformin HCl [Metformin HCl ER] 500 mg PO BID 12/18/16 [History] Metoprolol Succinate [Toprol Xl] 50 mg PO DAILY 12/18/16 [History] Oxycodone HCl 10 mg PO Q4H PRN 12/18/16 [History] Sertraline [Zoloft] 100 mg PO DAILY 12/18/16 [History] Rivaroxaban [Xarelto] 15 mg PO BID #40 tablet 12/21/16 [Rx] Rivaroxaban [Xarelto] 20 mg PO DAILY #30 tablet 12/21/16 [Rx] Allergies/Adverse Reactions: Allergies No Known Allergies Allergy (Verified 07/25/15 13:35) Date of admission: 12/19/16 09:01 Primary care physician: Boni Carlson MD Discharging clinician: Tim Prajapati Anticipated date of discharge: 12/21/16 - Patient Status Disposition: Home, Self-Care Condition: Fair Functional capacity at discharge: uses cane/walker Overall status at discharge: patient is progressing back to baseline - Ambulatory Orders Ambulatory Orders: Misc. Orders Time Frame: 1 Month, Location: any - Discharge Instructions Instructions: Rivaroxaban (By mouth), Pulmonary Embolism (DC), Deep Venous Thrombosis (DC), Diabetes Mellitus Type 2 in Adults (DC) Follow Up With: Boni Carlson MD [Primary Care Provider] - 12/26/16 11:00 am - Diet and Activity Activity: increase activity as tolerated Diet: diabetic diet Hospital course: Ms. Lawson is a 41 year old female who was admitted with bilateral DVT of the gastrocnemious vessels and bilateral PE ( submassive). An echo cardiogram was performed which did show signs of overload without RV strain. The patient was treated with a Heparin gtt. She has improved. She is now on room air and no longer has sinus tachycardia. Etiology of her thrombotic events are still unclear. Possibly provoked given her recent back injury and decreased imobility. However her Raynauds phenomenon would bring up the question of relation to a collegen vascular disease. She also has family history of spontaneous blood clots in her brother. We will discharge her today on Xarelto with close follow up with Rheumatology and Hematology. We will discharge her with an RX for Xarelto. she will continue to follow with [facility] for her back pain. The patient has voiced back her understanding and agreement to the above plan. - Time Spent with Patient Total time spent providing and/or coordinating discharge services: Less than 30 minutes - Constitutional Vitals: Temp Pulse Resp BP Pulse Ox 97.7 F 78 18 123/84 94 L 12/20/16 21:00 12/20/16 21:00 12/20/16 21:00 12/20/16 21:00 12/20/16 21:00 General appearance: Present: A&O X 3, morbidly obese, pleasant, no acute distress - Head Head exam: Present: atraumatic, normocephalic - Eye Eye exam: Present: PERRL, conjuntiva pink, sclera anicteric Pupils: Present: PERRL - Neck Neck exam general surgery: Present: supple, trachea midline. Absent: lymphadenopathy - Respiratory Respiratory exam: Present: CTAB. Absent: accessory muscle use, rales, rhonchi, wheezes - Cardiovascular Cardiovascular exam: Present: RRR, +S1, +S2. Absent: diastolic murmur, gallop, rubs, systolic murmur - GI/Abdominal GI/Abdominal exam: Present: normal bowel sounds, soft, no peritoneal signs. Absent: distended, tenderness - Extremities Exam Extremities exam: Present: warm, radial pulses palpable and symetrical. Absent : calf tenderness, cyanotic, pedal edema - Skin Skin exam: Present: dry, intact - VTE Reasons for not Prescribing Prophylaxis: Not indicated-Anticoagulated or INR therapeutic Documentation of Mechanical Device: Graduated compression elastic hosiery <Tim Prajapati P - Last Filed: 12/21/16 12:56> Date of Encounter: 12/21/16 Date of admission: 12/19/16 09:01 Primary care physician: Boni Carlson MD Hospital course: Ms. Lawson is a 41 year old female - Time Spent with Patient Total time spent providing and/or coordinating discharge services: - Constitutional Vitals: Temp Pulse Resp BP Pulse Ox 97.6 F 78 16 110/80 98 12/21/16 07:47 12/21/16 07:47 12/21/16 07:47 12/21/16 07:47 12/21/16 07:47 - Attending Attestation I examined this patient and my medical decision-making was reviewed with the LITIGATION CLAIM REPRESENTATIVE/PA/Advanced Practice Nurse/Resident Physician. I agree with the documented findings, disposition and treatment plan as described except to the extent set forth below.
[2016-12-21 06:14] LABS: BUN/Creatinine Ratio 14 (6-26); Blood Urea Nitrogen 10 mg/dL (7-20); Calcium 8.7 mg/dL (8.6-10.8); Carbon Dioxide 24 mEq/L (19-29); Chloride 104 mEq/L (98-109); Glucose 249 mg/dL (70-99); Osmolality,Calculated 287 (280-300); Potassium 3.7 mEq/L (3.5-4.5); Sodium 135 mEq/L (136-145); eGFR For African Americans > 60 (> 60); eGFR For Non-African Americans > 60 (> 60)
[2016-12-21] MEDS: *HR* Rivaroxaban 15 MG TABLET PO SCH (09:14)
[2016-12-21] MEDS: Metoprolol XL (24 HR) Succ 50 MG TAB.ER.24H PO SCH (09:14)
[2016-12-21] MEDS: Gabapentin 300 MG CAPSULE PO SCH ×2 (09:14→15:35)
[2016-12-21] MEDS: Insulin LISPRO 300 UNITS/3 ML VIAL SQ SCH ×2 (09:14→15:37)
[2016-12-21] MEDS: Lisinopril 20 MG TABLET PO SCH (09:15)
[2016-12-21] MEDS: Pantoprazole 40 MG VIAL IVP SCH (09:17)
[2016-12-21 16:11] VITALS: BP 139/91
[2016-12-22 08:00] LABS: Complement Component 3 161 mg/dL (88-201); Complement Component 4 44 mg/dL (10-40)
[2016-12-22 08:11] LABS: ANA IgG by ELISA DETECTED (None Detected)
--- NOTE | 2016-12-22 16:31 | Electrocardiograph Report ---
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
== END 2016-12-21 16:50 | disposition home or self-care (01) | DRG 176 ==
LOC: 2NENU 13:55 → EMEROO 13:55 → 2NENU 16:49
PROVIDERS: ADMIT Internal Medicine; ATTEND Internal Medicine

== ENCOUNTER 2017-02-14 07:49 | Observation (INO) ==
[2017-02-14 10:14] LABS: BUN/Creatinine Ratio 11 (6-26); Blood Urea Nitrogen 8 mg/dL (7-20); Carbon Dioxide 21 mEq/L (19-29); Chloride 105 mEq/L (98-109); Glucose 175 mg/dL (70-99); Osmolality,Calculated 285 (280-300); Sodium 136 mEq/L (136-145); eGFR For African Americans > 60 (> 60); eGFR For Non-African Americans > 60 (> 60)
[2017-02-14 10:15] LABS: Potassium 4.2 mEq/L (3.5-4.5)
[2017-02-14 10:37] LABS: Basophils % 0.4 %; Eosinophils # 0.1 K/mcL (0.0-0.6); Eosinophils % 0.9 %; Hematocrit 37.1 % (35.3-44.9); Hemoglobin 12.2 g/dL (11.5-15.4); Immature Granulocytes % 0.4 % (0-4); Lymphocytes # 1.8 K/mcL (0.6-4.6); Lymphocytes % 23.4 %; Mean Corpuscular HGB Conc 32.9 g/dL (31.6-35.5); Mean Corpuscular Volume 91.2 fL (83.0-100.0); Monocytes # 0.4 K/mcL (0.0-1.3); Monocytes % 5.3 %; Neutrophils # 5.4 K/mcL (1.6-8.9); Platelet Count 287 K/mcL (140-400); Red Blood Count 4.07 M/mcL (3.82-4.97); Red Cell Distribution Width 13.1 % (11.5-14.5); Segmented Neutrophils % 69.6 %
[2017-02-14 10:41] LABS: INR 1.2; Prothrombin Time 12.7 Seconds (9.4-12.1)
[2017-02-14 10:43] LABS: Activated Partial Thrombo Time 27.8 Seconds (26.0-36.0)
--- NOTE | 2017-02-14 12:20 | Spine - History & Physical Rep ---
Date of Encounter: 02/14/17 Time of Encounter: 09:45 Assessment and Plan (1) Seroma complicating a procedure Current visit: Yes Status: Acute On exam she is afebrile vital signs are stable. She complains subjectively of mild headache. She is neurovascularly intact with regard to her bilateral upper and lower extremities. She has a negative straight leg raise bilaterally. Her hips move symmetrically. She has no clonus. Lungs are clear , cardiovascular regular rate and rhythm. Abdomen is obese nontender and nondistended. She has no clubbing or edema. Back exam reveals clear, seroma drainage on her dressing. 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 We will plan to do irrigation and debridement, closure of her lumbar seroma. Risks benefits possible complications and alternatives were fully discussed with the patient and she would like to proceed. (2) Status post laminectomy Current visit: No Status: Chronic History of Present Illness Chief complaint: Clear wound drainage from back HPI: Ms. Lawson is a 42 year old female who is status post lumbar laminectomy approximately 3 weeks ago. She had known intraoperative durotomy and repair at the index procedure. She was doing well but in the past 2 days has developed clear drainage from her lumbar wound. This is associated with mild headache symptoms. She denies fevers, chills, or photo phobia. She is admitted for definitive management of presumed pseudomeningocele. Past Med Surg Social Fam HX - Past Medical History Medical history: DVT, diabetes, hypertension, pulmonary embolus Psychiatric history: anxiety - Past Surgical History Surgical History: cholecystectomy, orthopedic, other, other, IVC filter - Social History Smoking Status: Never smoker Smokeless Tobacco Status: No Alcohol use: rarely Drug use: none - Family History Father Living Status: Hx Family Cardiac Disorders: Yes (htn) Hx Family Respiratory Disorders: No Hx Family Cancer: No Hx Family Endocrine Disorder: Yes (dm) Medications and Allergies Cyclobenzaprine HCl 10 mg PO TID PRN 12/18/16 [History] Gabapentin 600 mg PO TID 12/18/16 [History] GlipiZIDE [Glucotrol] 5 mg PO DAILY 12/18/16 [History] Lisinopril 40 mg PO DAILY 12/18/16 [History] Metformin HCl [Metformin HCl ER] 500 mg PO BID 12/18/16 [History] Metoprolol Succinate [Toprol Xl] 50 mg PO DAILY 12/18/16 [History] Sertraline [Zoloft] 100 mg PO HS 12/18/16 [History] Rivaroxaban [Xarelto] 20 mg PO DAILY #30 tablet 12/21/16 [Rx] Enoxaparin [Lovenox] 140 mg SQ Q12HR 01/30/17 [History] OxyCODONE Immed Rel [Roxicodone 5 MG] 5 mg PO Q4HR PRN #60 tablet 02/01/17 [Rx] Allergies atorvastatin [From Lipitor] Adverse Reaction (Verified 01/30/17 13:52) Muscle Pain silk Adverse Reaction (Verified 01/30/17 13:52) Swelling of Lip/Tongue/Throat Results - Labs Result Diagrams: 02/14/17 10:29 02/14/17 09:44 Labs: Abnormal lab results MPV 9.0 fL (9.4-12.4) L 02/14/17 10:29 PT 12.7 Seconds (9.4-12.1) H 02/14/17 10:29 Glucose 175 mg/dL (70-99) H 02/14/17 09:44 H & H 02/14/17 Range/Units 10:29 Hgb 12.2 (11.5-15.4) g/dL Hct 37.1 (35.3-44.9) % All other labs normal. - VTE Documentation of Mechanical Device: Graduated compression elastic hosiery
--- NOTE | 2017-02-14 13:10 | Anesthesia Evaluation PreOp ---
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 Any Significant HX Other Medical History: Diabetes Type II, Other (morbid obesity with BMI 43) Anesthesia History: No Prior Anesthetic Complications, Past Anesthesia (IVC filter, kendal, lumbar laminectomy) : No Alcohol Use: rarely Drug use: none Medications and Allergies Cyclobenzaprine HCl 10 mg PO TID PRN 12/18/16 [History] Gabapentin 600 mg PO TID 12/18/16 [History] GlipiZIDE [Glucotrol] 5 mg PO DAILY 12/18/16 [History] Lisinopril 40 mg PO DAILY 12/18/16 [History] Metformin HCl [Metformin HCl ER] 500 mg PO BID 12/18/16 [History] Metoprolol Succinate [Toprol Xl] 50 mg PO DAILY 12/18/16 [History] Sertraline [Zoloft] 100 mg PO HS 12/18/16 [History] Rivaroxaban [Xarelto] 20 mg PO DAILY #30 tablet 12/21/16 [Rx] Enoxaparin [Lovenox] 140 mg SQ Q12HR 01/30/17 [History] OxyCODONE Immed Rel [Roxicodone 5 MG] 5 mg PO Q4HR PRN #60 tablet 02/01/17 [Rx] Allergies atorvastatin [From Lipitor] Adverse Reaction (Verified 01/30/17 13:52) Muscle Pain silk Adverse Reaction (Verified 01/30/17 13:52) Swelling of Lip/Tongue/Throat - Meds/Allergy Pre-op Review Medications Reviewed: Yes Allergies Reviewed: Yes Beta Blockers on Current Med List: No Anesthesia Results - Labs 02/14/17 10:29 02/14/17 09:44 Anesthesia Exam Selected Entries 02/14/17 10:41 Temperature 98.7 F Pulse Rate 81 Respiratory Rate 16 Blood Pressure 123/74 O2 Sat by Pulse Oximetry 96 Height: 70in Weight: 308lbs NPO (# of Hours): 8 Pain Scale: 0 Pain Scale Used: Numeric (1 - 10) - HEENT Pupil (Motor): EOMI Mallampati: II Teeth: Normal Oral Opening: Greater than 3 - PRINTING PLATE MAKER LOC: Oriented PRINTING PLATE MAKER Motor: Normal RUE, Normal LUE, Normal RLE, Normal LLE, Normal Face PRINTING PLATE MAKER Sensory: Normal: RUE, LUE, RLE, LLE, Face - Cardiac Rhythm: Regular Murmur: None - Pulmonary Breath Sounds: bilateral Clear Respiratory Effort: Symmetrical Anesthesia Assess/Plan ASA Score: 3 Modified [place] Scale for Level of Consciousness: Cooperative, oriented, and tranquil Anesthetic Plan: General Monitoring Plan: Standard Monitors Recovery Plan: PACU (Discussed risks of GA, questions answered and agrees to proceed.)
[2017-02-14] MEDS ORDERED: Lidocaine -MPF 2% 2 ML VIAL ONE (13:43)
[2017-02-14] MEDS ORDERED: *HR* Propofol 200 MG/20 ML VIAL IVP ONE (13:43)
[2017-02-14] MEDS ORDERED: *HR* FentaNYL (PF) 100 MCG/2 ML VIAL ONE (13:43)
[2017-02-14] MEDS ORDERED: *HR* Midazolam HCl 2 MG/2 ML VIAL ONE (13:43)
[2017-02-14] MEDS ORDERED: *HR* Rocuronium Bromide 50 MG/5 ML VIAL ONE (13:43)
[2017-02-14] MEDS ORDERED: Ondansetron 4 MG/2 ML VIAL IVP ONE (15:03)
[2017-02-14] MEDS ORDERED: *HR* Promethazine 25 MG/ML VIAL IVP PRN (15:03)
[2017-02-14] MEDS ORDERED: *HR* HYDROmorphone 2 MG/ML SYRINGE ONE (15:16)
--- NOTE | 2017-02-14 16:38 | Orthopedic Operative Note ---
Date of procedure: 02/14/17 Pre-op diagnosis: Lumbar seroma Post-op diagnosis: same Operation/Findings: Irrigation and closure lumbar seroma : The patient was brought to the operative theater where she underwent general endotracheal anesthesia. She was given antibiotics prior to the start of the procedure. Compression boots and stockings were used for deep vein thrombosis prophylaxis. The patient was placed prone on a Xander table. The back was prepped and draped in the usual sterile fashion. An incision was marked and centered over the L4-S1 interspaces in the midline, opening the previous incision. Upon entrance through the subcutaneous tissue there was abundant serous type fluid consistent with cerebrospinal fluid. This was carefully drained. We used retractors to retract the fascia and subcutaneous muscular layers and observe the dura and healing granulation tissue. There was a minimal spinal leak which was identified and appreciated. Replaced a DuraGen patch over the dura and overlaid this with DuraSeal. We observe the repair for 5 minutes and did not note any leaking cerebral spinal fluid. We carefully irrigated the wound and then closed the wound in layers with 1 Vicryl for the fascia, 1 Vicryl for the deep muscular layers, 2-0 Vicryl for the subcutaneous tissue, and interrupted 3- 0 nylon suture for the skin. Dermabond was used as an adjuvant for skin closure. Sterile dressings were placed over the wound, the patient was turned supine in a hospital bed, and was extubated in the operative theater. All sponge needles and instrument counts were correct at the end of the procedure. The patient tolerated the procedure well without complications. Anesthesia: GETA Surgeon: Andrea Moreira Jr Estimated blood loss (cc): 20 Condition: stable Disposition: PACU
[2017-02-14] MEDS: *HR* HYDROmorphone (PF) 1 MG/ML SYRINGE IVP PRN ×2 (16:56→17:17)
[2017-02-14] MEDS ORDERED: *HR* OxyCODONE Immed Rel 5 MG TABLET PO PRN (18:11)
[2017-02-14] MEDS ORDERED: Ondansetron 4 MG/2 ML VIAL IVP PRN (18:11)
[2017-02-14] MEDS ORDERED: *HR* Morphine 2 MG/ML SYRINGE IVP PRN (18:11)
[2017-02-14] MEDS ORDERED: Naloxone 0.4 MG/ML INJ IVP PRN (18:11)
--- NOTE | 2017-02-14 18:25 | Anesthesia Evaluation Post Op ---
Date of Encounter: 02/14/17 Time of Encounter: 17:40 - Vital Signs Vital Signs: Vital Signs/O2 Sat/Glucose, Most Current Temp Pulse Resp BP Pulse Ox 02/14/17 17:31 98.3 F 90 14 106/69 98 02/14/17 17:21 96 16 117/67 97 02/14/17 17:11 98.3 F 97 16 93/58 97 02/14/17 17:01 95 16 119/63 97 02/14/17 16:51 95 16 114/67 93 02/14/17 16:41 98.0 F 99 14 141/87 94 - Lungs Lungs: Clear Ascult./Percussion - Airway Airway: Non-obstructed - Cardiovascular Regular Rate - Mental Status Mental Status: Alert & Oriented, Answers Appropriately - Pain Pain Scale: 2 Pain Scale used: Numeric (1 - 10) - Nausea Vomiting Nausea Vomiting: Not Present - Hydration Hydration: Ice chips - Discharge PostOp Status: Transfer Patient to floor Anes Supervising Prov Stmt: Pt has met criteria for discharge to floor. - MD Marian
[2017-02-14] MEDS: *HR* OxyCODONE Immed Rel 5 MG TABLET PO PRN (19:57)
[2017-02-14] MEDS: *HR* Metformin 500 MG TABLET PO SCH (21:47)
[2017-02-14] MEDS: *HR* Morphine 2 MG/ML SYRINGE IVP PRN (23:32)
[2017-02-14] MEDS: Ringers Solution, Lactated 1,000 ML IVC SCH (23:32)
[2017-02-14] MEDS: ceFAZolin 2,000 MG in D5% in Water 100 ML IVPB SCH (23:47)
[2017-02-15] MEDS ORDERED: ceFAZolin 3,000 MG in D5% in Water 100 ML IVPB SCH
[2017-02-15] MEDS: *HR* OxyCODONE Immed Rel 5 MG TABLET PO PRN ×5 (01:37→23:24)
[2017-02-15] MEDS: *HR* Morphine 2 MG/ML SYRINGE IVP PRN ×4 (03:58→20:23)
[2017-02-15] MEDS: *HR* Metformin 500 MG TABLET PO SCH ×2 (07:48→16:45)
[2017-02-15] MEDS: ceFAZolin 2,000 MG in D5% in Water 100 ML IVPB SCH (08:11)
[2017-02-15] MEDS ORDERED: *HR* Rivaroxaban 10 MG TABLET PO SCH (09:00)
[2017-02-15] MEDS ORDERED: Metoprolol XL (24 HR) Succ 50 MG TAB.ER.24H PO SCH (09:00)
[2017-02-15] MEDS ORDERED: *HR* GlipiZIDE 5 MG TABLET PO SCH (09:00)
[2017-02-15] MEDS ORDERED: Lisinopril 20 MG TABLET PO SCH (09:00)
[2017-02-15] MEDS: Ringers Solution, Lactated 1,000 ML IVC SCH ×2 (10:49→20:24)
[2017-02-15] MEDS: traMADol 50 MG TABLET PO PRN ×2 (13:01→21:28)
[2017-02-15] MEDS: diazePAM 5 MG TABLET PO PRN (16:45)
[2017-02-16] MEDS: *HR* Morphine 2 MG/ML SYRINGE IVP PRN ×2 (00:30→04:33)
[2017-02-16] MEDS: diazePAM 5 MG TABLET PO PRN (01:34)
[2017-02-16] MEDS: *HR* OxyCODONE Immed Rel 5 MG TABLET PO PRN ×2 (03:29→08:27)
[2017-02-16] MEDS: traMADol 50 MG TABLET PO PRN (04:00)
--- NOTE | 2017-02-16 04:40 | Spine Progress Note ---
Date of Encounter: 02/15/17 Time of Encounter: 16:25 - Assessment and Plan (1) Seroma complicating a procedure Current Visit: Yes Status: Acute On exam she is afebrile vital signs are stable. She complains subjectively of mild headache. She is neurovascularly intact with regard to her bilateral upper and lower extremities. She has a negative straight leg raise bilaterally. Her hips move symmetrically. She has no clonus. Lungs are clear , cardiovascular regular rate and rhythm. Abdomen is obese nontender and nondistended. She has no clubbing or edema. Back exam reveals clear, seroma drainage on her dressing. 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 We will plan to do irrigation and debridement, closure of her lumbar seroma. Risks benefits possible complications and alternatives were fully discussed with the patient and she would like to proceed. (2) Status post laminectomy Current Visit: No Status: Chronic Subjective Principal diagnosis: seroma Interval history: The patient is without complaints except headache. Laying dwn. Afebrile vital signs are stable. Dressing is clean dry and intact. Neurovascularly intact with regard to bilateral lower extremities. Fires all upper and lower extremity motor groups. Assessment :stable. HOB 30 degrees max, ,continue analgesics, discharge planning. Objective Vital signs: Vital Signs Temp Pulse Resp BP Pulse Ox 02/16/17 03:38 97.9 F 100 16 121/71 94 02/15/17 23:27 98.3 F 93 16 112/69 94 02/15/17 20:03 97.5 F L 91 16 126/76 100 02/15/17 14:57 98.1 F 85 18 125/78 100 02/15/17 10:54 97.6 F 94 16 139/84 99 02/15/17 08:02 100 02/15/17 06:30 98.4 F 86 16 135/80 94 Intake and Output 02/15/17 02/15/17 02/16/17 15:59 23:59 07:59 Intake Total 1410 / 1410 690 / 690 Output Total 401 / 401 450 / 450 Balance 1009 / 1009 240 / 240 Intake: IV Fluids 1410 / 1410 690 / 690 Lactated Ringers 1,000 ML 1310 / 1310 690 / 690 @ 100 mls/hr IVC .Q10H BRI Rx#:[id number] Ancef 2,000 MG In 100 / 100 Dextrose 5% 100 ML @ 200 mls/hr IVPB Q8HR BRI Rx#: [id number] Output: Urine 401 / 401 450 / 450 Other: Blood Glucose* 206 174 - Labs CBC & BMP: 02/14/17 10:29 02/14/17 09:44 Labs: Abnormal lab results MPV 9.0 fL (9.4-12.4) L 02/14/17 10:29 PT 12.7 Seconds (9.4-12.1) H 02/14/17 10:29 Glucose 175 mg/dL (70-99) H 02/14/17 09:44 POC Glucose 114 (58-89) H 02/15/17 16:19 Consult Discharge Plan - Plan Referrals: Boni Carlson MD [Primary Care Provider] -
--- NOTE | 2017-02-16 04:43 | Discharge Summary ---
Date of Encounter: 02/16/17 Time of Encounter: 04:41 - Discharge Diagnosis (1) Seroma complicating a procedure Priority: Primary Status: Acute (2) Status post laminectomy Priority: Secondary Status: Chronic - Discharge Medications Prescriptions: OxyCODONE Immed Rel [Roxicodone 5 MG] 5 mg PO Q4HR PRN #60 tablet PRN Reason: Moderate to Severe Pain Home Medications: Cyclobenzaprine HCl 10 mg PO TID PRN 12/18/16 [History] Gabapentin 600 mg PO TID 12/18/16 [History] GlipiZIDE [Glucotrol] 5 mg PO DAILY 12/18/16 [History] Lisinopril 40 mg PO DAILY 12/18/16 [History] Metformin HCl [Metformin HCl ER] 500 mg PO BID 12/18/16 [History] Metoprolol Succinate [Toprol Xl] 50 mg PO DAILY 12/18/16 [History] Sertraline [Zoloft] 100 mg PO HS 12/18/16 [History] Rivaroxaban [Xarelto] 20 mg PO DAILY #30 tablet 12/21/16 [Rx] Enoxaparin [Lovenox] 140 mg SQ Q12HR 01/30/17 [History] OxyCODONE Immed Rel [Roxicodone 5 MG] 5 mg PO Q4HR PRN #60 tablet 02/01/17 [Rx] OxyCODONE Immed Rel [Roxicodone 5 MG] 5 mg PO Q4HR PRN #60 tablet 02/16/17 [Rx] Allergies/Adverse Reactions: Allergies atorvastatin [From Lipitor] Adverse Reaction (Verified 01/30/17 13:52) Muscle Pain silk Adverse Reaction (Verified 01/30/17 13:52) Swelling of Lip/Tongue/Throat Labs on day of discharge: Labs from last 24 hours 02/15/17 02/15/17 02/15/17 16:19 10:58 06:33 POC Glucose 114 H 206 H 186 H Date of admission: 02/14/17 08:13 Primary care physician: Boni Carlson MD Consults: 02/14/17 18:11 Consult to Nurse Navigator [CONS] Routine Comment: spine navigator - Patient Status Disposition: Home, Self-Care Condition: Good Functional capacity at discharge: independent ambulation Overall status at discharge: patient is progressing back to baseline - Discharge Instructions Follow Up With: Boni Carlson MD [Primary Care Provider] - - Diet and Activity Activity: as per physical therapy Diet: advance to your usual diet - Hospital Course Hospital course: Ms. Lawson is a 42 year old female The patient had an uneventful postoperative course. Progressed from intravenous analgesic needs to oral analgesic needs only. Remained neurovascularly intact and mobilized satisfactorily after a period of bed rest secondary to possible spinal headache.. All intraoperative and/or postoperative radiographic studies were satisfactory. Patient is discharged with plan for rehabilitation and follow-up in 2 weeks post discharge on analgesic medication and patient's home medications. - Time Spent with Patient Total time spent providing and/or coordinating discharge services: - VTE Documentation of Mechanical Device: Graduated compression elastic hosiery
[2017-02-16 06:59] VITALS: BP 120/74
== END 2017-02-16 08:39 | disposition home or self-care (01) ==
LOC: 3NENU
PROVIDERS: ADMIT Orthopaedic Surgery Orthopaedic Surgery of the Spine; ATTEND Orthopaedic Surgery Orthopaedic Surgery of the Spine